=== PATIENT | female | born 1945 | race Caucasian/White ===

== ENCOUNTER 2018-06-15 10:24 | Day surgery (SDC) | payer MEDICARE ==
[2018-06-15] MEDS: NS 1,000 ML IV (06:00)
[~2018-06-15 10:24] MED LIST: LIDOCAINE 2% INJ 100 MG/5 ML SDV (FOR ANES.) As Ordered; PROPOFOL 200 MG/20 ML VIAL As Ordered
[2018-06-15] MEDS ORDERED: PROPOFOL 200 MG/20 ML VIAL As Ordered (11:56)
== END 2018-06-15 13:15 | disposition home or self-care (01) ==
LOC: M OPP 10:24
DX: Z12.11 Encounter for screening for malignant neoplasm of colon (principal); Z86.010 Personal history of colon polyps; K21.9 Gastro-esophageal reflux disease without esophagitis; K31.7 Polyp of stomach and duodenum; K44.9 Diaphragmatic hernia without obstruction or gangrene; I48.91 Unspecified atrial fibrillation; I10 Essential (primary) hypertension; Z95.0 Presence of cardiac pacemaker; R12 Heartburn; R06.02 Shortness of breath; M19.90 Unspecified osteoarthritis, unspecified site; M54.89 Other dorsalgia; R06.83 Snoring; R32 Unspecified urinary incontinence; Z96.642 Presence of left artificial hip joint; Z96.653 Presence of artificial knee joint, bilateral; Z91.048 Other nonmedicinal substance allergy status; Z79.01 Long term (current) use of anticoagulants; Z79.899 Other long term (current) drug therapy
CPT/HCPCS: G0105

== ENCOUNTER → 2024-08-26 | Outpatient (CLI) | payer OTHER ==
[~2024-08-26] MED LIST changes: +ACET-683 PO; +ATEN50TA2 PO; +Acetaminophen PO; +Atenolol PO; +CALCIUM WITH D PO; +CALCTAB20 PO; +CQ 10 PO; +HCTZ PO; +HYDR-3644 PO; -LIDOCAINE 2% INJ 100 MG/5 ML SDV (FOR ANES.) As Ordered; +LISI40TA52 PO; +Lisinopril PO; +Multivitamin PO; +NEXI40CA PO; +OXYC1TAB23 PO; +Omega 3 PO; +PERCOCET PO; +POTA-149 PO; +PRAV80TA2 PO; +PROBCAP4 PO; -PROPOFOL 200 MG/20 ML VIAL As Ordered; +PROZ40CA PO; +Pravastatin PO; +Prozac PO; +SENO8.6T10 PO; +Tums; +VITA-122 PO; +VITMTA PO; +Vitamin D3 PO; +Vitamin E PO; +WARF-18 PO; +WARF-23 PO; +Warfarin PO; +[UNRECOGNIZED DRUG - CODE] PO; +collagen PO
== END ==
LOC: M PLAIMG 10:25
PROVIDERS: ATTEND Registered Nurse
DX: I08.0 Rheumatic disorders of both mitral and aortic valves (principal)